=== PATIENT | female | born 1935 | race Caucasian/White ===

== ENCOUNTER 2016-09-01 08:12 | Inpatient (IN) | payer MEDICARE, OTHER ==
--- NOTE | ~2016-09-01 | CN ---
Consultation Report [facility] [address] [place]. [address] NAME: TRAVIS LIANG : 33 STATUS : ADM IN [facility]#: [id number] AGE: 81 ADM/REG DATE : 09/01/16 MR#: [id number] REPORT SERV DATE: 09/03/16 DICTATED BY: MARY YEPEZ DATE: 09/03/16 REPORT STATUS : Draft TRANSCRIBED BY: MODL DATE: 09/03/16 CONSULTATION DATE OF CONSULTATION: 09/03/2016 HISTORY OF PRESENT ILLNESS: This is an 81-year-old white female, who was admitted with hypoxic respiratory failure. Also, had some nausea and vomiting, which has resolved. Also, some left lower quadrant discomfort. The CT showed possible sigmoid mass and also showed gallstone. Surgery has been consulted and requested GI consultation. Has past history of respiratory failure; recurrent pneumonia; COPD; past history of removed, but still drains from the site. Also, required a PEG in 2011 that has been removed as well. Has had a benign abdominal tumor removed. Has had hysterectomy and partial thyroidectomy. Has obstructive sleep apnea and is diabetic. History of coronary artery disease, status post stent, on Plavix, the last dose was on Tuesday. She has continued to have some bowel movements, had three bowel movements yesterday. Also, history of hypertension. LFTs have been unremarkable. She has had low-grade temp. She is on antibiotics for presumed UTI. SOCIAL HISTORY: Negative. FAMILY HISTORY: Negative. LABORATORY DATA: Has chronic anemia, hemoglobin 7.3; white count of 13,000; platelet count 232,000. PHYSICAL EXAMINATION: GENERAL: Frail-appearing white female, lethargic. HEENT: Anicteric. NECK: Scar from previous surgery. CHEST: Few scattered rhonchi. HEART: Regular rate and rhythm without murmur or gallop. ABDOMEN: Soft. Some mild distention. Some tenderness in the left lower quadrant. Bowel sounds are present. EXTREMITIES: Grossly intact. NEUROLOGIC: Again, somewhat lethargic. ASSESSMENT: 1. CT with sigmoid mass, rule out CA. 2. End-stage renal disease, on hemodialysis. 3. Sepsis with probable urinary tract infection, on antibiotics. White count 13. 4. Past history of respiratory failure, status post trach, status post PEG, which was removed. Also, hypoxic respiratory failure on admission with history of chronic obstructive pulmonary disease and history of recurrent . 5. Coronary artery disease, status post stent. Has been on Plavix since Tuesday. Consultation Report [facility] [id number] [place]. [address] NAME: TRAVIS LIANG : 34 STATUS : ADM IN PAT#: [id number] AGE: 81 ADM/REG DATE : 09/01/16 MR#: [id number] REPORT SERV DATE: 09/03/16 DICTATED BY: MARY YEPEZ DATE: 09/03/16 REPORT STATUS : Draft TRANSCRIBED BY: OZZIE DATE: 09/03/16 6. Hypertension. 7. Diabetes mellitus. 8. Chronic anemia with hemoglobin of 7.3. SUGGESTIONS: A request has been made for sigmoidoscopy, we will schedule that with Dr. Bone on this weekend. Risks and benefits explained to the patient and daughter who are in agreement with the above. Thank you very much for consultation. ALEX/OZZIE Mary Yepez M.D. / [id number] CC: Christopher Ochoa M.D. Armando Saunders M.D.
--- NOTE | ~2016-09-01 | CN ---
Consultation Report [facility] [address] [place]. [address] NAME: TRAVIS LIANG : 34 STATUS : DIS IN PAT#: [id number] AGE: 81 ADM/REG DATE : 09/01/16 MR#: [id number] REPORT SERV DATE: 09/05/16 DICTATED BY: OZ MCCOY DATE: 09/05/16 REPORT STATUS : Draft TRANSCRIBED BY: MODL DATE: 09/05/16 INFECTIOUS DISEASE CONSULT DATE OF CONSULTATION: REASON FOR REFERRAL: Evaluation and treatment of worsening sepsis despite antibiotics. HISTORY OF PRESENT ILLNESS: The patient is an 81-year-old female. She has history of hypertension, diabetes mellitus, obstructive sleep apnea, coronary artery disease, gout, end stage renal disease, for which she is on hemodialysis. She has had worsening health over recent years. She has had multiple grafts failure. She had a severe pneumonia in 2012 resulting in prolonged vent dependence, tracheostomy. She has had difficulty with the stoma remaining ever since the trach was reversed. She has been very debilitated since then. She comes in on the with shortness of breath, abdominal distention, nausea, vomiting, and abdominal pain. She had after a couple of days fever, elevated white blood cell count of 16,000, a source for that was sought for. A chest x-ray looked more like congestive heart failure. Her urine did show E. coli, but she does not make much urine, it is more of a sludge. She, on the CT scan of her abdomen, was actually found to have a sigmoid mass highly suspicious of a malignancy and with signs of partial obstruction in the colon. She was started on vancomycin and Zosyn. Cultures of her sputum grew an MRSA, but it was very sparse, hardly any organism was seen on the Gram stain. Her blood showed no growth. Despite those antibiotics, she has continued to worsen, appear more and more ill. She has had recurrent fevers every day. Her white blood cell count has continued to climb and today it is 60,000 with 66 segs, 23% bands. The patient is currently unresponsive and unable to answer questions. PAST MEDICAL HISTORY: Otherwise unremarkable. Extensive records for her complicated ICU stay were reviewed for approximately 30 minutes in addition to the usual consult time. MEDICATIONS: She is on vancomycin and Zosyn. ALLERGIES: NO KNOWN ANTIMICROBIAL ALLERGIES. SOCIAL HISTORY: She is , has been cared for at home recently, but very debilitated. Nonsmoker. No history of alcohol or substance abuse. FAMILY HISTORY: Noncontributory. PHYSICAL EXAMINATION: GENERAL: A very ill, almost moribund-appearing elderly female, unresponsive. VITAL SIGNS: Her present temperature is 100.2 axillary, pulse 93, respirations 59, blood pressure 91/50. Her weight is 69 kg. HEENT: Sclerae are clear. Unable to really visualize her mouth. Her neck stoma shows no signs of purulence or infection. Consultation Report [facility] [address] [place]. [address] NAME: TRAVIS LIANG : 33 STATUS : DIS IN PAT#: [id number] AGE: 81 ADM/REG DATE : 09/01/16 MR#: [id number] REPORT SERV DATE: 09/05/16 DICTATED BY: OZ MCCOY DATE: 09/05/16 REPORT STATUS : Draft TRANSCRIBED BY: OZZIE DATE: 09/05/16 LUNGS: There are shallow rapid respirations with rales in the bases. HEART: Regular rate and rhythm. ABDOMEN: Distended, quiet. No response to palpation. EXTREMITIES: Without clubbing or cyanosis. No swollen, red, or hot joints. There is mild edema. There are no signs of cellulitis. IV site shows no signs of inflammation. LABORATORY DATA: White count 16.1 when she came in, 60.8 today. As previously mentioned, hematocrit 25.8 and platelets 275. Her BUN and creatinine are 58 and 6.49. Her procalcitonin when she came in was 1.29, it is 3.29 when checked yesterday. Her liver function tests at admission showed a slightly high alkaline phosphatase of 118, otherwise within normal limits. Her lactate is 12.1. IMPRESSION: I suspect that the source of her sepsis-like picture is intraabdominal. The chest x-ray really sounds more like congestive heart failure, fluid overload, doubt urine as a source. Abdomen is distended with a mass that has likely led to bowel or holes in the bowel. I would be suspicious of just usual gastrointestinal geovanni and not anything unusual since she has been out of the hospital for some time. RECOMMENDATIONS: 1. I think vancomycin and Zosyn are reasonable antibiotic coverage at this time. 2. Await Surgery's evaluation to see whether there is something that is potentially fixable in light of all of her other medical problems. Finally, I will follow the patient with you. I appreciate very much your consulting on this patient. MARY LOU Oz Mccoy M.D. / [id number] CC: Armando Sandoval M.D.
--- NOTE | ~2016-09-01 | CN ---
Consultation Report [address] [place]. [address] NAME: TRAVIS LIANG : 34 STATUS : ADM IN PAT#: [id number] AGE: 81 ADM/REG DATE : 09/01/16 MR#: [id number] REPORT SERV DATE: 09/02/16 DICTATED BY: FAVIOANURADHABENJAMIN MOYA DATE: 09/02/16 REPORT STATUS : Draft TRANSCRIBED BY: MODL DATE: 09/02/16 CONSULTATION DATE OF CONSULTATION: 09/02/2016 REASON FOR CONSULTATION: Consulted for possible sepsis, low O2 sats, and low blood pressure. IDENTIFYING DATA: PRIMARY CARE PHYSICIAN: Branden Upton M.D. UROLOGIST: Issac Olivier M.D. NATUROPATHIC DOCTOR: Rodrick Chatman M.D. LABELING ASSOCIATE: Roger Ruiz M.D. RESIDENTIAL COLLECTIONS: Rodríguez Clay M.D. HISTORY OF PRESENT ILLNESS: This is an 81-year-old female, admitted under Dr. Christophre Ochoa, with possible sigmoid mass and hypoxemia. She is debilitated, who dialyzes every Tuesday, Tuesday, and Tuesday by left PermCath at the [facility]. She has a history of end-stage renal disease, on dialysis, diabetes type 2, hypertension, chronic respiratory failure with trach, anemia, coronary artery disease, obstructive sleep apnea in the past, as well as CHF. The hospitalist group has been consulted to manage possible sepsis with low O2 sats and low blood pressure. The patient's history was obtained through interview with the patient's daughter at the bedside, coupled with review of [facility] and [facility], [facility] consultant notes, and old medical records. PAST MEDICAL HISTORY: 1. End-stage renal disease, on dialysis Tuesday, Tuesday, Tuesday at the [facility]. 2. Diabetes type 2. 3. Hypertension. 4. Coronary artery disease. 5. Gout. 6. Obstructive sleep apnea. 7. Rectal bleeding. 8. Chronic respiratory failure. 9. Tracheostomy. 10.Cerebrovascular disease. 11.Anemia. Consultation Report [address] [place]. [address] NAME: TRAVIS LIANG : 34 STATUS : ADM IN PAT#: [id number] AGE: 81 ADM/REG DATE : 09/01/16 MR#: [id number] REPORT SERV DATE: 09/02/16 DICTATED BY: ANURADHA STAHL DATE: 09/02/16 REPORT STATUS : Draft TRANSCRIBED BY: OZZIE DATE: 09/02/16 12.Chronic debility. 13.Recurrent pneumonia. 14.CHF. HOME MEDICATIONS: 1. Tylenol 650 mg p.o. every eight hours p.r.n. pain. 2. Albuterol 3 mL inhalation every eight hours scheduled for shortness of breath or wheezing. 3. Aspirin, enteric coated, 81 mg tablet p.o. at bedtime. 4. Lipitor 10 mg p.o. at bedtime. 5. Tums E-X 750 mg two tabs p.o. three times a day with meals. 6. Coreg 3.125 mg p.o. twice a day. 7. Zyrtec 10 mg p.o. daily p.r.n. allergies. 8. Plavix 75 mg p.o. every morning. 9. Multivitamin with minerals one tablet p.o. every morning. 10.Zofran 4 mg p.o. every eight hours p.r.n. nausea and vomiting. 11.Betadine skin cleanser one application topically daily p.r.n. to infected foot for healing. 12.Prednisone 1 mg p.o. at bedtime, maintenance therapy. 13.Zoloft 100 mg p.o. every morning. 14.Simethicone 80 mg p.o. four times a day p.r.n. gas. 15.Ultram 50 mg p.o. twice a day p.r.n. pain. 16.Dialysis day Tuesday, Tuesday, Tuesday via [facility]. 17.Colace 100 to 300 mg p.o. twice a day p.r.n. constipation. 18.Pepcid 20 mg p.o. every morning. 19.Uloric 40 mg p.o. at bedtime. 20.Flonase nasal spray 50 mcg per inhalation one spray nasally daily p.r.n. to both nostrils for congestion. 21.Mucinex 1200 mg p.o. twice a day. 22.Lantus 25 units subcu at bedtime. 23.Synthroid 50 mcg p.o. every morning. 24.Midodrine 5 mg p.o. daily on Tuesday, Tuesday, Tuesday on dialysis days, she takes it at the clinic. ALLERGIES: NO KNOWN ALLERGIES. SOCIAL HISTORY: The patient is . The daughter states that her lives in [place], and she lives with her daughter in a single-level home. The patient is bedridden. Does get home health care. No tobacco, alcohol, or illicit drug use. FAMILY HISTORY: Positive for diabetes and hypertension. Mother had hypertension and an [place]. Daughter states that the patient is an only child. SURGICAL HISTORY: 1. Coronary artery disease with PCI in 2011. Consultation Report [facility] [address] [place]. [address] NAME: TRAVIS LIANG : 34 STATUS : ADM IN [facility]#: [id number] AGE: 81 ADM/REG DATE : 09/01/16 MR#: [id number] REPORT SERV DATE: 09/02/16 DICTATED BY: ANURADHA STAHL DATE: 09/02/16 REPORT STATUS : Draft TRANSCRIBED BY: OZZIE DATE: 09/02/16 2. Removal of benign abdominal tumor. 3. Total abdominal hysterectomy. 4. Cardiac stents. 5. Partial thyroidectomy. 6. PEG placement and removal. 7. Left upper extremity fistula that has failed. 8. Left thigh graft that has failed. 9. Left PermCath for [facility]. REVIEW OF SYSTEMS: Negative other than what is in HPI. The patient presently is very sleepy, arouses only briefly and tries to answer questions. Difficult to understand her. No shortness of breath noted. No nausea and vomiting. No abdominal pain. No chest pain. She did have a fever earlier of 102.4, which now is down to 100.2. No agitation. Daughter states she does have confusion at times, especially since she has been sick. PHYSICAL EXAMINATION: VITAL SIGNS: From today, blood pressure 92/39, respiratory rate 26, heart rate 92, temperature 100.3, O2 saturation 92% on 4 L nasal cannula. GENERAL: This is an 81-year-old female, resting in bed, no acute distress presently. NEURO: Her head is atraumatic, normocephalic. She will arouse, is unable to determine her orientation. NECK: Supple. Trachea is midline. She does have a tracheostomy in place. Neck veins are flat. No obvious thyromegaly or lymphadenopathy. EENT: Her sclera is nonicteric. Pupils are equal and reactive to light. Nares patent. Mucous membranes moist. Tongue is midline without deviation. Presently, the patient, unable to evaluate phonation. CHEST: No pain with palpation. She does have a left dressing clean, dry, and intact, where she has a PermCath for dialysis. LUNGS: Her lungs have crackles at the right chest, diminished in the bases. Normal respiratory effort at present. Unable to evaluate conversation. CARDIOVASCULAR: S1, S2. She is on telemetry, displays a sinus rhythm with a rate of 97. No obvious murmurs, rubs, or gallops. ABDOMEN: Obese, soft, nontender. Bowel sounds active. No palpable organomegaly. Last bowel movement documented on 09/01/2016. EXTREMITIES: No edema. Normal distal pulses. No calf tenderness. SKIN: Warm and dry. No unusual rashes or lesions. Normal color and turgor for age. PSYCH: The patient awakens briefly. Does not follow commands presently. Wants to drift off back to sleep. LABORATORY DATA: Sodium 142, potassium 3.7, chloride 106, bicarb 22.1, BUN 28, creatinine 3.77, GFR 12, glucose 137, calcium 8.0, magnesium 1.5, phosphorus 1.7. White blood cells 13.1, hemoglobin 7.3, hematocrit 23.1, platelets 232. BNP is 3205.5. The patient had an x- ray that is pending this morning on 09/01/2016. EKG obtained on 09/01/2016 showed a normal Consultation Report [address] [address] NAME: TRAVIS LIANG : 34 STATUS : ADM IN [facility]#: [id number] AGE: 81 ADM/REG DATE : 09/01/16 MR#: [id number] REPORT SERV DATE: 09/02/16 DICTATED BY: ANURAHDA STAHL DATE: 09/02/16 REPORT STATUS : Draft TRANSCRIBED BY: MODL DATE: 09/02/16 sinus rhythm with a sinus arrhythmia, ST and T-wave abnormality. ABGs obtained this morning displayed a pH of 7.4, pCO2 of 30, pO2 of 64, base excess of - 1.0, bicarb of 22.1, O2 saturation of 89% which was on 2 L nasal cannula. She has been increased to 4 L nasal cannula. ASSESSMENT AND PLAN: 1. Hypotension. The patient's blood pressure has been in the 90s. Normally, she is in the 120s to 130s. Present blood pressure is 92/39. We will initiate albumin 25 g IV and repeat it x1. We will obtain blood cultures x2. Obtain a procalcitonin, a lactate, and a cortisol level this morning. She has a CMP, magnesium, phosphorus, CBC already on the chart. 2. Hypoxemia. Previously, the patient on O2 at 2 L. She does have a history of obstructive sleep apnea noted in the past. With her ABG results, her O2 was increased to 4 L nasal cannula. She has continuous O2 saturation monitoring. Portable chest x- ray has been done, results pending. We will place her on DuoNeb q.6. Keep saturations of 92% or greater. 3. Fever. Temperature was up to 102.4. Presently, temperature is down to 100.2. She is on Zosyn and vancomycin. We will also obtain a random cortisol level this morning too for her fever and hypotension. 4. Diabetes type 2. Aware. Her daughter monitors her blood sugars at home usually every other day. She does not feel like she needs education regarding diet or monitoring. She said on the average the blood sugars at home run 90 to 120 fasting. The patient's present blood sugars were 137, 163, 111, and 107. She is on a sliding scale with h.s. Levemir, which is continued and we will check a hemoglobin A1c this morning. 5. Labs this morning. CMP, magnesium, phosphorus, CBC, procalcitonin, lactate, blood cultures x2, ABG, cortisol level, hemoglobin A1c, and a portable chest x-ray. The hospitalist group would like to thank you for this consultation. Let us know if we can be of further assistance; a.m. team to follow an evaluation of lab work and blood cultures for further assistance of care. JACEY Anuradha Stahl NP / [id number] CC: Armando Sandoval M.D.
--- NOTE | ~2016-09-01 | DS ---
Discharge Summary [facility] [address] [place]. [address] NAME: TRAVIS LIANG : 34 STATUS : DIS IN PAT#: [id number] AGE: 81 ADM/REG DATE : 09/01/16 MR#: [id number] REPORT SERV DATE: 09/17/16 DICTATED BY: DARYL WHEELER DATE: 09/16/16 REPORT STATUS : Draft TRANSCRIBED BY: MODL DATE: 09/16/16 Data Collection from hospitalization DISCHARGE DIAGNOSES: 1. Sigmoid mass. 2. Low colon partial obstruction secondary to sigmoid mass. 3. Tachypnea secondary to abdominal distention and metabolic acidosis. 4. Positive anion gap metabolic acidosis. 5. Altered mental status. 6. End-stage renal disease. 7. Hypertension. 8. Type 2 diabetes mellitus. 9. Obstructive sleep apnea. 10.Coronary artery disease. 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 12.Congestive heart failure. 13.History of tracheostomy. 14.Chronic debilitation. CONSULTATIONS: 1. Anuradha Ortiz NP. 2. Ramone Gandhi M.D. 3. Jeevan Mccoy M.D. 4. Anselmo Saucedo M.D. 5. Ramone Camarillo MD. PROCEDURES PERFORMED: CT scan of the abdomen and pelvis without contrast on 09/01/2016. DISPOSITION: [facility]. HOSPITAL COURSE: The patient was an 81-year-old female who dialyzed on Mondays, Wednesdays, and Fridays via a left IJ PermCath. She apparently was having difficulty breathing the night prior to admission and her daughter suctioned her through her stoma, which should never close following trach removal. She had a history of prolonged hospitalization in 2012 with ventilator support. With regard to her breathing, it had not improved on the morning of admission, and she was brought to the emergency room. Her ABG revealed pO2 of 56 on arrival. She also reported some nausea with intermittent vomiting as well as some left lower quadrant pain. A CT scan of the abdomen and pelvis without contrast was performed and this revealed what appeared to be a sigmoid colon mass. Her daughter was advised of the CT scan findings and that we should have a Surgery evaluation. She was also advised that the patient may not be considered a candidate for surgery due to multiple medical problems. Her daughter had been providing very good support for years and indicated she would want a second opinion if the initial surgeon refused to operate. She was admitted to the hospital at this time for further evaluation and treatment. Upon admission, she was started on hemodialysis ultrafiltration. She was seen by Dr. Anselmo Saucedo. The daughter said that over the past several weeks the patient has had a change in bowel habits and she had noticed that her mother had some abdominal Discharge Summary [facility] [id number] [place]. [address] NAME: TRAVIS LIANG : 34 STATUS : DIS IN PAT#: [id number] AGE: 81 ADM/REG DATE : 09/01/16 MR#: [id number] REPORT SERV DATE: 09/17/16 DICTATED BY: DARYL WHEELER DATE: 09/16/16 REPORT STATUS : Draft TRANSCRIBED BY: OZZIE DATE: 09/16/16 distention. She had complained of some pain along her left side as well as in the left lower quadrant. CT scan of the abdomen and pelvis had shown a regular thickened appearance of the sigmoid that was worrisome for neoplastic lesion, partially obstructing the colon at this level. It was not high grade at this time. There was no perforation. There were extensive atherosclerotic changes. The patient's daughter stated that her mother had a colonoscopy approximately 25 to 30 years prior to this admission; however, had refused repeat colonoscopy since that time despite some history of rectal bleeding. At one colonoscopy, they removed some polyps. White blood cell count was 16. Currently, she was not obstructed. She was having bowel movements. It was discussed with the family the options of obtaining a colonoscopy, both for further evaluation of the colon pathology and possibly placing a stent and also the role of surgery for colon decompression. Currently, she had been started on vancomycin and Zosyn. Blood cultures were obtained. Further recommendations would be made once more data became available. The following day, she was seen by Anuradha Ortiz regarding possible sepsis, low O2 saturations, and low blood pressure. Blood cultures were obtained. Procalcitonin and lactate and cortisol levels were going to be checked. She was presently on O2 at 2 liters. She had a history of obstructive sleep apnea. Her temperature had been up to 102.4 and was presently 100.2. She was on Zosyn and vancomycin. We were going to obtain random cortisol level due to her fever and hypotension. She was on sliding scale insulin with Levemir. Hemoglobin A1c was going to be checked. She was tachypneic and hypotensive during the night. She had fever. On 09/03/2016, her T-max was 100. She did have a bowel movement. Urine culture revealed many bacteria. Her temperature was 99. Functional status remained poor. Troponin was going to be rechecked. Echocardiogram was performed. She was seen by Dr. Ramone Gandhi. She had a history of having a benign abdominal tumor removed. She had required a PEG in 2011 that had been removed. She had continued to have some bowel movements. She had three bowel movements the day previously. A request was made for sigmoidoscopy, this was going to be scheduled. The risks and benefits were explained to the patient and her daughter, and they were in agreement to proceed. No dialysis therapy was performed. On 09/04/2016, she was not responsive verbally. She had been found to have an E. coli urinary tract infection. We discussed with the patient's daughter the patient's decreased mental status and that it was probably unsafe to continue with oral prep. There was concern for protecting the airway. Antibiotics were continued. She remained poorly responsive and tachypneic. On 09/05/2016, her T-max was 99.6. She remained tachypneic. An NG tube was placed with 500 mL output. Her prognosis was very poor. Her condition was felt to be worsening. Her sensorium had decreased. White blood cell count had increased further to 60.8. The patient was seen by Dr. Jeevan Mccoy for evaluation and treatment of worsening sepsis despite antibiotics. Despite her antibiotics, she had continued to worsen and she appeared more-more ill. She had recurrent fevers every day. White blood cell count continued to increase. It was now 60,000 with 66 segs and 23% bands. At the time of admission, her procalcitonin level was 1.29 and it was now 3.29. Liver function tests at admission showed slightly high alkaline phosphatase of 118, otherwise, within normal limits. Lactate was 12.1. It was suspected that the source of her sepsis-like picture was intraabdominal. Chest x-ray appeared to be congestive heart failure and fluid overload. We were doubtful of urine as a source. Her abdomen was distended with a mass that had likely led to a bowel or holes in the bowel. He felt that vancomycin and Zosyn were reasonable antibiotic coverage at this time. Flexible sigmoidoscopy had been canceled Discharge Summary [facility] [id number] [place] [address] NAME: TRAVIS LIANG : 34 STATUS : DIS IN PAT#: [id number] AGE: 81 ADM/REG DATE : 09/01/16 MR#: [id number] REPORT SERV DATE: 09/17/16 DICTATED BY: DARYL WHEELER DATE: 09/16/16 REPORT STATUS : Draft TRANSCRIBED BY: OZZIE DATE: 09/16/16 secondary to worsening respiratory status and altered mental status. She had a soft brown bowel movement. She was seen by Dr. Ramone Camarillo. He had been asked to evaluate the patient regarding potential intubation secondary to metabolic acidosis and poor mental status. She was awaiting a second opinion with regard to surgical intervention from another surgeon when she then developed hypotension/bradycardia and went into PEA arrest. Code Blue was called. The patient was started on a bicarb drip. Levophed drip was going to be placed. The patient's condition continued to decline. The patient was found to have no pulse or respirations. She was pronounced at 3:02 p.m. and released to the above-mentioned home. Information collected by: Melissa Corcoran I submit the above information as my discharge summary. TG/OZZIE Daryl Wheeler M.D. / [id number] CC: Armando Sandoval M.D. William Cockerham, M.D. David Collins, M.D. Mark Anderson, M.D.
--- NOTE | ~2016-09-01 | HP ---
History And Physical [facility] [id number] [facility] [place]. [address] NAME: TRAVIS LIANG : 34 STATUS : ADM IN [facility]#: [id number] AGE: 81 ADM/REG DATE : 09/01/16 MR#: [id number] REPORT SERV DATE: 09/01/16 DICTATED BY: ZARINA OCHOA DATE: 09/01/16 REPORT STATUS : Draft TRANSCRIBED BY: MODL DATE: 09/01/16 DATE OF ADMISSION: 09/01/2016 INDICATION FOR HOSPITALIZATION: Possible sigmoid mass, hypoxemia. HISTORY OF PRESENT ILLNESS: Ms. Liang is a debilitated 81-year-old female who dialyzes Tuesday, Tuesday, Tuesday by left IJ PermCath at the [facility]. She apparently was having difficulty breathing the night prior to admission and her daughter suctioned her through her stoma which should never close following trach removal. She has a history of a prolonged hospitalization in 2012 with ventilator support. In regard to her breathing, it had not improved in the morning of admission and she was brought to the emergency room. Her ABG revealed a pO2 of 56 on arrival. The patient also reported some nausea with intermittent vomiting as well as some left lower quadrant pain. Due to physical exam, a CT scan was ordered and revealed what appeared to be a sigmoid colon mass. The patient's daughter was advised of the CT scan findings and that we would have surgery evaluate. She was also and advised that the patient may not be considered a candidate for surgery due to multiple medical problems. This daughter has been providing very good support for years and indicated she would want a second opinion as the initial surgeon refused to operate. PAST MEDICAL HISTORY: 1. End-stage renal disease, dialyzing Tuesday, Tuesday, and Tuesday at [facility] by left IJ PermCath. 2. History of recurrent pneumonia. 3. Right heel ulcer secondary to steal. 4. Partial thyroidectomy. 5. Total abdominal hysterectomy. 6. Remote rectal bleeding. 7. Tophaceous gout. 8. Hypertension. 9. Coronary artery disease with PCI in 2011. 10.Obstructive sleep apnea. 11.Type 2 diabetes mellitus. 12.Congestive heart failure. 13.History of chronic debilitation. 14.History of removal of benign abdominal tumor. 15.Tracheostomy. 16.PEG tube placement and removal. 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 ALLERGIES: NONE KNOWN. HOME MEDICATIONS: Acetaminophen, albuterol nebulizer, enteric-coated aspirin, calcium carbonate, Lipitor, Coreg, Zyrtec, Plavix, Colace, Pepcid, Uloric, Flonase nasal spray, Mucinex, Lantus insulin, levothyroxine, midodrine, multivitamin, Zofran, Betadine skin History And Physical [address] [address] NAME: TRAVIS LIANG : 34 STATUS : ADM IN PAT#: [id number] AGE: 81 ADM/REG DATE : 09/01/16 MR#: [id number] REPORT SERV DATE: 09/01/16 DICTATED BY: ZARINA OCHAO DATE: 09/01/16 REPORT STATUS : Draft TRANSCRIBED BY: OZZIE DATE: 09/01/16 cleaner laboratory equipment, prednisone, Zoloft, Gas-X, and tramadol. REVIEW OF SYSTEMS: HEENT: Negative except for intermittent cough and sinus drainage. PULMONARY: No shortness of breath, cough. No hemoptysis. CARDIAC: No chest pain. Has noted lower extremity edema. GASTROINTESTINAL: Left-sided abdominal pain, nausea, vomiting, decreased appetite. GENITOURINARY: No gross hematuria. MUSCULOSKELETAL: Chronic debilitation with generalized weakness. History of gouty arthritis. NEUROLOGIC: Generalized weakness. No seizure history. DERMIS: No rash. No itching. Remainder of 12-point review of systems is negative. PHYSICAL EXAMINATION: GENERAL: Chronically debilitated female, answers partially to questions. VITAL SIGNS: Blood pressure 108/48, temperature 98.2, pulse 96, and respiratory rate 12. HEENT: Eyes, no scleral icterus. Pupils are equal and reactive to light. Extraocular movement intact. Nares patent. No discharge. Throat with ostomy noted. No bruits. No masses. CHEST/LUNGS: Bilateral crackles anteriorly and posteriorly with some rhonchi. CARDIAC: Regular rate and rhythm, 1/6 systolic ejection murmur. No gallop. No rub. ABDOMEN: some left lower quadrant tenderness. No guarding or rebound. Unable to appreciate hepatosplenomegaly. No bruits. BREASTS: Not performed. PELVIC: Not performed. RECTAL: Not performed. EXTREMITIES: Trace edema in the lower extremities. No calf tenderness. NEUROLOGIC: Cranial nerves appear intact. No lateralizing weakness. MUSCULOSKELETAL: No deformity. IMPRESSION: 1. Hypoxic respiratory failure with mild volume overload. 2. Congestive heart failure. 3. Probable sigmoid colonic mass. 4. End-stage renal disease, on chronic hemodialysis. 5. Chronic debilitation. 6. Type 2 diabetes mellitus. 7. Obstructive sleep apnea. 8. Coronary artery disease with remote PCI. 9. Hypertension. 10.Tophaceous gout. PLAN: 1. Hemodialysis ultrafiltration. 2. Surgery consult, currently feels that the patient is a poor candidate for general anesthesia, and this was expressed to the patient's daughter. History And Physical [address] [place]. [address] NAME: TRAVIS LIANG : 34 STATUS : ADM IN [facility]#: [id number] AGE: 81 ADM/REG DATE : 09/01/16 MR#: [id number] REPORT SERV DATE: 09/01/16 DICTATED BY: ZARINA OCHOA DATE: 09/01/16 REPORT STATUS : Draft TRANSCRIBED BY: OZZIE DATE: 09/01/16 CG/OZZIE Zarina Ochoa M.D. / [id number] CC: Armando Sandoval M.D.
--- NOTE | ~2016-09-01 | CN ---
Consultation Report [facility] [address] [place]. [address] NAME: TRAVIS LIANG : 34 STATUS : DIS IN PAT#: [id number] AGE: 81 ADM/REG DATE : 09/01/16 MR#: [id number] REPORT SERV DATE: 09/05/16 DICTATED BY: ANSELMO SAUCEDO DATE: 09/05/16 REPORT STATUS : Draft TRANSCRIBED BY: MODL DATE: 09/05/16 SURGICAL CONSULTATION DATE OF CONSULTATION: 09/01/2016 REASON FOR CONSULTATION: Consultation is requested by Dr. Ochoa regarding possible sigmoid mass. HISTORY OF PRESENT ILLNESS: Ms. Liang is an 81-year-old female with end-stage renal disease. She dialyzes via hemodialysis from left IJV PermCath on Tuesday, Tuesday, and Tuesday and also has multiple other medical problems including history and some rectal bleeding, who presented to [facility] Emergency Room secondary to some difficulty breathing on the night prior to admission. An ABG at that time revealed a pO2 of 56. Most of the history is obtained from the patient's daughter who has been caring for her and supporting her very well for several years especially after a very prolonged hospitalization in 2012. The patient does try to partially answer questions; however, she is very difficult to understand. The daughter states that over the past several weeks, the patient has had a change in bowel habits, and she has also noticed that her mother has had some abdominal distention. The patient has complained of some pain along her left side as well as on left lower quadrant. Secondary to these complaints, a CT scan of the abdomen and pelvis was obtained. This was read by the radiologist as an irregular thickened appearance of the sigmoid that is worrisome for neoplastic lesion partially obstructing the colon at this level, it is not high grade at this time. There was no perforation. There were extensive atherosclerotic changes. Cardiomegaly with heavy coronary artery disease and small amount of bibasilar atelectasis. Secondary to this finding of the irregularly thickened appearance of the sigmoid colon, surgery was consulted for possible concern for sigmoid neoplasm. The patient's daughter states that she had a colonoscopy approximately 25-30 years ago; however, had refuses repeat colonoscopy since that time despite some history of rectal bleeding. At her one colonoscopy, they removed some polyps. No further history is available about this. There was no family history of colon cancer. PAST MEDICAL HISTORY AND PAST SURGICAL HISTORY: 1. End-stage renal disease with dialysis on Tuesday, Tuesday, and Tuesday. 2. History of prolonged hospitalization in 2012, at which time, she was intubated for a prolonged amount of time. She had a tracheostomy. She currently still has a stoma. She did have a code blue arrest during that time. 3. History of recurrent pneumonia. 4. 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 5. Partial thyroidectomy. 6. Total abdominal hysterectomy. 7. History of rectal bleeding. 8. History of gout. 9. Hypertension. 10.Coronary artery disease with PCI in 2011. Consultation Report [place] [id number]. [address] NAME: TRAVIS LIANG : 33 STATUS : DIS IN [facility]#: [id number] AGE: 81 ADM/REG DATE : 09/01/16 MR#: [id number] REPORT SERV DATE: 09/05/16 DICTATED BY: ANSELMO SAUCEDO DATE: 09/05/16 REPORT STATUS : Draft TRANSCRIBED BY: OZZIE DATE: 09/05/16 11.Obstructive sleep apnea. 12.Type 2 diabetes. 13.Congestive heart failure. 14.Chronic debilitation. 15.History of removal of a large tumor in her abdomen that was benign for which she underwent an exploratory laparotomy in 2003. 16.PEG tube placement and removal. 17.Multiple AV graft failures including the left upper extremity and the left thigh. 18.Stroke in the past. She has residual deficits of weakness in her left arm. FAMILY HISTORY: Negative for colon cancer. Multiple family members have diabetes and hypertension. SOCIAL HISTORY: The patient lives with her daughter who is her primary gift shop manager. No tobacco, alcohol, or illicits. Her lives in [place]. ALLERGIES: NO KNOWN DRUG ALLERGIES. MEDICATIONS: Reviewed per the computer record. REVIEW OF SYSTEMS: Positive for the symptoms listed in the history of present illness. PHYSICAL EXAMINATION: VITAL SIGNS: Blood pressure is 102/55, heart rate is 108, and temperature 100.1. GENERAL: Mrs. Liang is an elderly woman who is lying in the bed. She is in no acute distress. She is chronically debilitated. She does make eye contact and tries to partially answer questions. However, she does speak quite slowly. This was likely secondary to her previous CVA. She is also very hard to understand. HEENT: She has no deformities. Pupils are equal, round, and reactive to light. Oropharynx is clear. Mucous membranes are moist. NECK: There is a stoma from her previous tracheostomy that is patent. LUNGS: She has coarse breath sounds bilaterally with decreased breath sounds in the bases. HEART: Regular rate and rhythm. ABDOMEN: Soft. It is obese. She is tender to palpation along the left side. In the left lower quadrant, there was no peritonitis. Initially, she states that her pain is in her left chest and in her left upper quadrant; however, on examination, it does seem like it is more sore in the left lower quadrant. EXTREMITIES: There is no edema. Her motor in her left arm is significantly decreased. She is essentially bedbound at home. LABORATORY DATA: All available laboratory data were reviewed in full with a white blood cell count of 16, hematocrit is 24. BUN is 49, creatinine is 4.83, and glucose is 107. Calcium is 8. Consultation Report [address] [place]. [address] NAME: TRAVIS LIANG : 34 STATUS : DIS IN PAT#: [id number] AGE: 81 ADM/REG DATE : 09/01/16 MR#: [id number] REPORT SERV DATE: 09/05/16 DICTATED BY: ANSELMO SAUCEDO DATE: 09/05/16 REPORT STATUS : Draft TRANSCRIBED BY: OZZIE DATE: 09/05/16 CT scan was reviewed as mentioned above. ASSESSMENT AND PLAN: Ms. Liang is an 81-year-old woman with a very poor functional status and multiple medical comorbidities who now has a change in her bowel habits and abdominal distention. A CT scan that is concerning for a rectosigmoid neoplasm with partial obstruction. Currently, she is not obstructed. She is having bowel movements. It was discussed with the family options of obtaining a colonoscopy both for further evaluation of the colon pathology and possibly placing a stent and also the role of surgery for colon decompression. Currently, she has been begun on vancomycin and Zosyn. Blood cultures have been obtained. Further investigations are pending regarding her leukocytosis. Further recommendations will follow once more data becomes available. Thank you for this consultation. No antibiotics. Further investigations as to the source of her white count being undertaken including respiratory. DICTATED BY: MD ALEX Cook/OZZIE Anselmo Sauceod M.D. / [id number] CC: Armando Schmidt M.D.
[~2016-09-01 08:12] MED LIST: ACCUNE1 INH; ACCUNEB INH; ACETSUP650 PR; AGGRENOX PO; ALBUTEROL5 INH; ALLOPURINOL; AMPI500 PO; ASA5GR PEG; ASA5GR PO; ASAB PO; ATV.5 PO; CALMOSEPTINE O2.5 OZ TOP; CAT1 PO; CENTRUM PO; CIP5 PO; COLCRYS0.6 MG PO; COREG12 PO; COREG3 PO; COREG6 PO; DITRO5 PO; DOCUSOFT S100 MG PO; FERRETTS325 MG PO; FERROUS SULF325 M1 PO; FISH OIL300 MG PO; FLORASTOR250 MG PO; FLOVENT DISK50 MCG INH; FOLIC PO; GANIDIN NR100 MG/5 M PO; GARAOINT15 TOP; HALF81 PO; HEMOCYTE324 MG PO; HEPARIN INJ5000 U/ML SQ; INSPRA25 PO; IRON325 MG PO; IVVIBRA PO; K250 PO; KLOR-CON M2020 MEQ PO; L20 PO; LANTUS SC; LANTUSCART SC; LEVAQUIN5T PO; LEVOTHYROXIN50 MCG PO; LIDODERM T; LIPITOR10 PO; LIPITOR40 PO; MAXIMUM D3 PO; MONODOX100 MG PO; MUCINEX1200 MG PO; MUCINEX600 MG PO; MULTIPLE VIT PO; MULTIVIT/MIN PO; NOVOLOG SC; OMEGA-3; P1 PO; P5 PO; PEP20 PO; PERIDEX PO; PHOSLO PO; PLAVIX PEG; PLAVIX PO; PRIN20 PO; PROAM25; PROAMAT5 PO; PROCTOFOAM15 GM RE; PROTONIX PO; PROVENTSOL INH; REG PEG; SILVASORB TOP; SPIRO25 PO; STARLIX120 PO; SYN.025B PO; SYN.05 PO; TUMS E-X750 M2 PO; Tums PO; ULORIC40 MG PO; ULTRAM50 PO; VANC125UDL PO; VANCO1P; VANCOCIN HCL125 MG PO; VIB100 PO; Z100 PEG; Z100 PO; ZOCOR40 PO; ZOFRAN ODT4 MG PO; ZOFRAN4 PO; ZOL100 PO; ZOL50 PO; [UNRECOGNIZED DRUG - OTHER] PO
[2016-09-01 08:34] LABS: BE (BASE EXCESS) -1.7 MEQ/L (0 +/- 2.5); CARBOXYHEMOGLOBIN 2.2 % (0-3); HCO3 (ACTUAL BICARBONATE) 22.2 MEQ/L (23-27); HEMOBLOGIN CONTENT 7.8 G/DL (12-16); INSTRUMENT SERIAL # 8087; O2 CONTENT 9.2 VOL% (18-24); PCO2 (CO2 TENSION) 34 MMHG (35-45); PO2 (O2 TENSION) 56 MMHG (79-93); SAMPLE Arterial; pH 7.44 (7.37-7.43)
[2016-09-01 08:47] LABS: BASOPHILS 0.2 %; BASOPHILS ABSOLUTE 0.04 10/3/uL (0.0-0.16); EOSINOPHILS 0.7 %; EOSINOPHILS ABSOLUTE 0.11 10/3/uL (0.0-0.53); ER CBC TAT 0 Hrs 00 Mins; HEMATOCRIT 24.6 % (36.0-48.0); HEMOGLOBIN 8.1 g/dL (12.0-16.0); IMMATURE GRANULOCYTES 1.4 %; IMMATURE GRANULOCYTES ABSOLUTE 0.22 10/3/uL (0.0-0.11); LYMPHOCYTES 9.3 %; LYMPHOCYTES ABSOLUTE 1.49 10/3/uL (0.67-4.30); MEAN CORPUS HGB CONC 32.9 g/dL (32.0-36.0); MEAN CORPUSCULAR HEMOGLOB 31.9 pg (26.0-34.0); MEAN CORPUSCULAR VOLUME 96.9 fL (80-100); MEAN PLATELET VOLUME 9.4 fL (9.2-13.0); MONOCYTES 12.3 %; MONOCYTES ABSOLUTE 1.97 10/3/uL (0.21-1.20); NEUTROPHILS 76.1 %; NEUTROPHILS ABSOLUTE 12.23 10/3/uL (2.02-8.40); RBC DISTRIBUTION WIDTH 15.8 % (12.0-16.0); RED CELL COUNT 2.54 10/6/uL (4.0-5.6); WHITE BLOOD CELLS 16.1 10/3/uL (4.5-10.5)
[2016-09-01 08:53] LABS: MANUAL DIFF NO %; PLATELET COUNT 227 10/3/uL (150-400)
[2016-09-01 09:04] LABS: A/G RATIO 0.6 (0.7-1.9); ALBUMIN 2.3 G/DL (3.5-5.0); CHLORIDE, SERUM 99 MMOL/L (96-112); CO2 (CARBON DIOXIDE) 23 MMOL/L (24-34); GLOBULIN 3.9 G/DL (2.5-4.1); SGOT(AST) 32 U/L (5-40); SGPT(ALT) 17 U/L (5-65); SODIUM, SERUM 136 MMOL/L (135-148); TOTAL BILIRUBIN 0.7 MG/DL (0-1.2); TOTAL PROTEIN 6.2 G/DL (6.0-8.5)
[2016-09-01 09:05] LABS: ALKALINE PHOSPHATASE 118 U/L (45-117); BUN (BLOOD UREA NITROGEN) 49 MG/DL (6-23); CREATININE 4.83 MG/DL (0.55-1.02); GFR AFRICAN AMERICAN 9 ML/MIN (>=60); GFR NON AFRICAN AMERICAN 8 ML/MIN (>=60); GLUCOSE, SERUM 107 MG/DL (60-99); POTASSIUM, SERUM 3.8 MMOL/L (3.5-5.3)
[2016-09-01] MEDS ORDERED: ALBUTEROL0.083 % INH (11:38)
[2016-09-01] MEDS ORDERED: DIALYSIS IV (11:38)
[2016-09-01] MEDS ORDERED: HALF81 PO (11:39)
[2016-09-01] MEDS ORDERED: LIPITOR10 PO (11:39)
[2016-09-01] MEDS ORDERED: TUMS E-X750 M2 PO (11:39)
[2016-09-01] MEDS ORDERED: ULORIC40 MG PO (11:40)
[2016-09-01] MEDS ORDERED: PLAVIX PO (11:40)
[2016-09-01] MEDS ORDERED: MUCINEX1200 MG PO (11:40)
[2016-09-01] MEDS ORDERED: COREG3 PO (11:40)
[2016-09-01] MEDS ORDERED: PEP20 PO (11:40)
[2016-09-01] MEDS ORDERED: LANTUSCART SC (11:41)
[2016-09-01] MEDS ORDERED: SYN.05 PO (11:41)
[2016-09-01] MEDS ORDERED: ZOFRAN4 PO (11:42)
[2016-09-01] MEDS ORDERED: PROAMAT5 PO (11:42)
[2016-09-01] MEDS ORDERED: MULTIVIT/MIN PO (11:42)
[2016-09-01] MEDS ORDERED: P1 PO (11:43)
[2016-09-01] MEDS ORDERED: ULTRAM50 PO (11:43)
[2016-09-01] MEDS ORDERED: ZOL100 PO (11:43)
[2016-09-01] MEDS ORDERED: DSS PO (11:44)
[2016-09-01] MEDS ORDERED: 8 HOUR650 MG PO (11:44)
[2016-09-01] MEDS ORDERED: FLONASE NAS (11:45)
[2016-09-01] MEDS ORDERED: GAS-X80 MG PO (11:45)
[2016-09-01] MEDS ORDERED: ZYRTEC ALLGY10 MG PO (11:45)
[2016-09-01] MEDS ORDERED: [UNRECOGNIZED DRUG - OTHER] TOP (11:46)
[2016-09-02 00:10] LABS: ALLENS TEST Pos; CARBOXYHEMOGLOBIN 2.5 % (0-3); DEVICE Nasal Cannula 4; HCO3 (ACTUAL BICARBONATE) 22.1 MEQ/L (23-27); HEMOBLOGIN CONTENT 7.1 G/DL (12-16); INSTRUMENT SERIAL # 8087; O2 CONTENT 8.8 VOL% (18-24); OPERATOR ID 17589; PCO2 (CO2 TENSION) 30 MMHG (35-45); PO2 (O2 TENSION) 64 MMHG (79-93); SAMPLE Arterial; pH 7.49 (7.37-7.43)
[2016-09-02 01:21] LABS: HEMATOCRIT 23.1 % (36.0-48.0); HEMOGLOBIN 7.3 g/dL (12.0-16.0); MANUAL DIFF YES %; MEAN CORPUS HGB CONC 31.6 g/dL (32.0-36.0); MEAN CORPUSCULAR HEMOGLOB 31.5 pg (26.0-34.0); MEAN CORPUSCULAR VOLUME 99.6 fL (80-100); MEAN PLATELET VOLUME 9.5 fL (9.2-13.0); NUCLEATED RED BLOOD CELLS 0.2 /100WBC (0-0); PLATELET COUNT 232 10/3/uL (150-400); RBC DISTRIBUTION WIDTH 15.7 % (12.0-16.0); RED CELL COUNT 2.32 10/6/uL (4.0-5.6); WHITE BLOOD CELLS 13.1 10/3/uL (4.5-10.5)
[2016-09-02 01:37] LABS: BAND NEUTROPHILS 4 %; EOSINOPHILS 1 %; EOSINOPHILS ABSOLUTE (CALC) 0.13 10/3/uL (0.0-0.53); LYMPHOCYTES 12 %; LYMPHOCYTES ABSOLUTE (CALC) 1.57 10/3/uL (0.67-4.30); MONOCYTES 5 %; MONOCYTES ABSOLUTE (CALC) 0.66 10/3/uL (0.21-1.20); NEUTROPHILS ABSOLUTE (CALC) 10.74 10/3/uL (2.02-8.40); PLATELET ESTIMATE ADQ (ADEQUATE); RBC MORPHOLOGY NORM (NORMAL); SEGMENTED NEUTROPHIL (0) 78 %; TOTAL NUCLEATED CELLS 100
[2016-09-02 01:47] LABS: ALBUMIN 2.6 G/DL (3.5-5.0); CHLORIDE, SERUM 106 MMOL/L (96-112); CO2 (CARBON DIOXIDE) 23 MMOL/L (24-34); POTASSIUM, SERUM 3.7 MMOL/L (3.5-5.3); SODIUM, SERUM 142 MMOL/L (135-148)
[2016-09-02 01:53] LABS: BUN (BLOOD UREA NITROGEN) 28 MG/DL (6-23); CREATININE 3.77 MG/DL (0.55-1.02); GFR AFRICAN AMERICAN 12 ML/MIN (>=60); GFR NON AFRICAN AMERICAN 11 ML/MIN (>=60); GLUCOSE, SERUM 137 MG/DL (60-99); PHOSPHORUS, SERUM 1.7 MG/DL (2.5-4.5)
[2016-09-02 06:03] LABS: A/G RATIO 0.8 (0.7-1.9); ALBUMIN 2.7 G/DL (3.5-5.0); ALKALINE PHOSPHATASE 113 U/L (45-117); BUN (BLOOD UREA NITROGEN) 34 MG/DL (6-23); CHLORIDE, SERUM 107 MMOL/L (96-112); CO2 (CARBON DIOXIDE) 25 MMOL/L (24-34); CREATININE 4.21 MG/DL (0.55-1.02); GFR AFRICAN AMERICAN 11 ML/MIN (>=60); GFR NON AFRICAN AMERICAN 9 ML/MIN (>=60); GLOBULIN 3.5 G/DL (2.5-4.1); GLUCOSE, SERUM 111 MG/DL (60-99); PHOSPHORUS, SERUM 2.9 MG/DL (2.5-4.5); POTASSIUM, SERUM 3.9 MMOL/L (3.5-5.3); SGOT(AST) 27 U/L (5-40); SGPT(ALT) 18 U/L (5-65); SODIUM, SERUM 142 MMOL/L (135-148); TOTAL BILIRUBIN 0.7 MG/DL (0-1.2); TOTAL PROTEIN 6.2 G/DL (6.0-8.5); TROPONIN I 3.15 NG/ML (<0.05)
[2016-09-02 06:26] LABS: PROCALCITONIN 1.29 ng/mL (<0.5)
[2016-09-02 14:47] LABS: CK-MB 3.6 NG/ML; CPK 36 U/L (0-200); TROPONIN I 2.43 NG/ML (<0.05)
[2016-09-02 17:13] LABS: ASCORBIC ACID (UR NOT ORDER) NEG (NEG); BILIRUBIN, URINE NEGATIVE (NEG); KETONE, URINE NEGATIVE (NEG); LEUKOCYTE ESTERASE(NOT OR SMALL (NEG)
[2016-09-02 17:16] LABS: WBC (NOT ORDERED) (RFLEX) > 182 (0-5)
[2016-09-02 20:04] LABS: CPK 31 U/L (0-200)
[2016-09-02 20:05] LABS: CK-MB 3.2 NG/ML; TROPONIN I 2.49 NG/ML (<0.05)
[2016-09-03 15:30] LABS: BASOPHILS 0.2 %; BASOPHILS ABSOLUTE 0.09 10/3/uL (0.0-0.16); EOSINOPHILS 0 %; EOSINOPHILS ABSOLUTE 0.02 10/3/uL (0.0-0.53); HEMATOCRIT 24.3 % (36.0-48.0); HEMOGLOBIN 7.6 g/dL (12.0-16.0); IMMATURE GRANULOCYTES 1.3 %; IMMATURE GRANULOCYTES ABSOLUTE 0.64 10/3/uL (0.0-0.11); LYMPHOCYTES 2.9 %; LYMPHOCYTES ABSOLUTE 1.47 10/3/uL (0.67-4.30); MEAN CORPUS HGB CONC 31.3 g/dL (32.0-36.0); MEAN CORPUSCULAR HEMOGLOB 31.4 pg (26.0-34.0); MEAN CORPUSCULAR VOLUME 100.4 fL (80-100); MEAN PLATELET VOLUME 9.8 fL (9.2-13.0); MONOCYTES 8.7 %; MONOCYTES ABSOLUTE 4.33 10/3/uL (0.21-1.20); NEUTROPHILS 86.9 %; NEUTROPHILS ABSOLUTE 43.36 10/3/uL (2.02-8.40); NUCLEATED RED BLOOD CELLS 0.1 /100WBC (0-0); PLATELET COUNT 301 10/3/uL (150-400); RBC DISTRIBUTION WIDTH 16.1 % (12.0-16.0); RED CELL COUNT 2.42 10/6/uL (4.0-5.6)
[2016-09-03 15:33] LABS: MANUAL DIFF NO %; WHITE BLOOD CELLS 49.9 10/3/uL (4.5-10.5)
[2016-09-03 15:39] LABS: ALBUMIN 2.8 G/DL (3.5-5.0); CALCIUM, SERUM 8.3 MG/DL (8.5-10.4); CHLORIDE, SERUM 104 MMOL/L (96-112); CO2 (CARBON DIOXIDE) 23 MMOL/L (24-34); SODIUM, SERUM 139 MMOL/L (135-148)
[2016-09-03 15:40] LABS: BUN (BLOOD UREA NITROGEN) 56 MG/DL (6-23); CREATININE 6.45 MG/DL (0.55-1.02); GFR AFRICAN AMERICAN 6 ML/MIN (>=60); GFR NON AFRICAN AMERICAN 6 ML/MIN (>=60); GLUCOSE, SERUM 139 MG/DL (60-99); PHOSPHORUS, SERUM 4.3 MG/DL (2.5-4.5); POTASSIUM, SERUM 4.7 MMOL/L (3.5-5.3)
[2016-09-03 15:48] LABS: ANISOCYTOSIS 1+ (5-10/OIF) (0-5/OIF); BAND NEUTROPHILS 11 %; LYMPHOCYTES 3 %; MACROCYTES 1+ (5-10/OIF) (0-5/OIF); MONOCYTES 3 %; NEUTROPHILS ABSOLUTE (CALC) 46.91 10/3/uL (2.02-8.40); PLATELET ESTIMATE ADQ (ADEQUATE); SEGMENTED NEUTROPHIL (0) 83 %; TEARDROP SHAPED RBCS OCC (0-2/OIF); TOTAL NUCLEATED CELLS 100
[2016-09-03 15:49] LABS: OVALOCYTES 1+ (3-10/OIF) (0-2/OIF)
[2016-09-04 06:27] LABS: BUN (BLOOD UREA NITROGEN) 32 MG/DL (6-23); CALCIUM, SERUM 8.7 MG/DL (8.5-10.4); CHLORIDE, SERUM 106 MMOL/L (96-112); CO2 (CARBON DIOXIDE) 22 MMOL/L (24-34); CREATININE 4.57 MG/DL (0.55-1.02); GFR AFRICAN AMERICAN 10 ML/MIN (>=60); GFR NON AFRICAN AMERICAN 8 ML/MIN (>=60); GLUCOSE, SERUM 165 MG/DL (60-99); PHOSPHORUS, SERUM 2.5 MG/DL (2.5-4.5); SODIUM, SERUM 142 MMOL/L (135-148)
[2016-09-04 06:50] LABS: HEMATOCRIT 24.7 % (36.0-48.0); HEMOGLOBIN 7.5 g/dL (12.0-16.0); MEAN CORPUS HGB CONC 30.4 g/dL (32.0-36.0); MEAN CORPUSCULAR HEMOGLOB 31.1 pg (26.0-34.0); MEAN CORPUSCULAR VOLUME 102.5 fL (80-100); NUCLEATED RED BLOOD CELLS 0.2 /100WBC (0-0); PLATELET COUNT 281 10/3/uL (150-400); RBC DISTRIBUTION WIDTH 16.4 % (12.0-16.0); RED CELL COUNT 2.41 10/6/uL (4.0-5.6)
[2016-09-04 07:00] LABS: MANUAL DIFF YES %; WHITE BLOOD CELLS 47.5 10/3/uL (4.5-10.5)
[2016-09-04 07:21] LABS: BAND NEUTROPHILS 22 %; BASOPHILS 1 %; BASOPHILS ABSOLUTE (CALC) 0.48 10/3/uL (0.0-0.16); EOSINOPHILS 1 %; EOSINOPHILS ABSOLUTE (CALC) 0.48 10/3/uL (0.0-0.53); LYMPHOCYTES 3 %; LYMPHOCYTES ABSOLUTE (CALC) 1.43 10/3/uL (0.67-4.30); MONOCYTES 4 %; NEUTROPHILS ABSOLUTE (CALC) 43.23 10/3/uL (2.02-8.40); SEGMENTED NEUTROPHIL (0) 69 %; TOTAL NUCLEATED CELLS 100
[2016-09-04 07:30] LABS: MACROCYTES 1+ (5-10/OIF) (0-5/OIF); PLATELET ESTIMATE ADQ (ADEQUATE); POLYCHROMASIA 1+ (2-5/OIF) (0-1/OIF)
[2016-09-04 07:31] LABS: TOXIC GRANULATION 1+
[2016-09-04 08:18] LABS: PROCALCITONIN 3.29 ng/mL (<0.5)
[2016-09-04 09:55] LABS: ALLENS TEST Pos; CARBOXYHEMOGLOBIN 1.3 % (0-3); DEVICE NC; HCO3 (ACTUAL BICARBONATE) 21.8 MEQ/L (23-27); HEMOBLOGIN CONTENT 7.9 G/DL (12-16); INSTRUMENT SERIAL # 8083; O2 CONTENT 10.2 VOL% (18-24); PCO2 (CO2 TENSION) 38 MMHG (35-45); PO2 (O2 TENSION) 79 MMHG (79-93); SAMPLE Arterial; pH 7.38 (7.37-7.43)
[2016-09-05 05:49] LABS: ALBUMIN 2.7 G/DL (3.5-5.0); CALCIUM, SERUM 9.2 MG/DL (8.5-10.4); CHLORIDE, SERUM 106 MMOL/L (96-112); SODIUM, SERUM 144 MMOL/L (135-148)
[2016-09-05 05:50] LABS: BUN (BLOOD UREA NITROGEN) 58 MG/DL (6-23); CO2 (CARBON DIOXIDE) 16 MMOL/L (24-34); CREATININE 6.49 MG/DL (0.55-1.02); GFR AFRICAN AMERICAN 6 ML/MIN (>=60); GFR NON AFRICAN AMERICAN 5 ML/MIN (>=60); POTASSIUM, SERUM 4.9 MMOL/L (3.5-5.3)
[2016-09-05 05:51] LABS: GLUCOSE, SERUM 122 MG/DL (60-99); PHOSPHORUS, SERUM 4.9 MG/DL (2.5-4.5)
[2016-09-05 06:06] LABS: HEMATOCRIT 25.6 % (36.0-48.0); HEMOGLOBIN 7.7 g/dL (12.0-16.0); MANUAL DIFF YES %; MEAN CORPUS HGB CONC 30.1 g/dL (32.0-36.0); MEAN CORPUSCULAR HEMOGLOB 31.2 pg (26.0-34.0); MEAN CORPUSCULAR VOLUME 103.6 fL (80-100); MEAN PLATELET VOLUME 9.9 fL (9.2-13.0); NUCLEATED RED BLOOD CELLS 0.4 /100WBC (0-0); PLATELET COUNT 275 10/3/uL (150-400); RBC DISTRIBUTION WIDTH 16.5 % (12.0-16.0); RED CELL COUNT 2.47 10/6/uL (4.0-5.6); WHITE BLOOD CELLS 60.8 10/3/uL (4.5-10.5)
[2016-09-05 06:41] LABS: BAND NEUTROPHILS 23 %; IMMATURE GRANS ABSOLUTE (CALC) 1.22 10/3/uL (0.0-0.11); LYMPHOCYTES 3 %; LYMPHOCYTES ABSOLUTE (CALC) 1.82 10/3/uL (0.67-4.30); METAMYELOCYTES 2 %; MONOCYTES 6 %; MONOCYTES ABSOLUTE (CALC) 3.65 10/3/uL (0.21-1.20); NEUTROPHILS ABSOLUTE (CALC) 54.11 10/3/uL (2.02-8.40); SEGMENTED NEUTROPHIL (0) 66 %; TOTAL NUCLEATED CELLS 100
[2016-09-05 06:42] LABS: HELMET CELLS OCC (0-2/OIF); HYPOCHROMIA 1+ (3-10/OIF) (0-2/OIF); MACROCYTES 1+ (5-10/OIF) (0-5/OIF); PLATELET ESTIMATE ADQ (ADEQUATE); POLYCHROMASIA 1+ (2-5/OIF) (0-1/OIF); TEARDROP SHAPED RBCS OCC (0-2/OIF); TOXIC GRANULATION 1+; VACUOLATED NEUTROPHILES OCC
[2016-09-05 06:43] LABS: ANISOCYTOSIS 1+ (5-10/OIF) (0-5/OIF); MICROCYTES 1+ (5-10/OIF) (0-5/OIF); POIKILOCYTOSIS 1+ (5-10/OIF) (0-5/OIF); SCHISTOCYTES OCC (0-2/OIF); TARGET CELLS OCC (1-2/OIF) (0-1/OIF)
[2016-09-05 12:13] LABS: BE (BASE EXCESS) -16.3 MEQ/L (0 +/- 2.5); CARBOXYHEMOGLOBIN 0.4 % (0-3); HCO3 (ACTUAL BICARBONATE) 9.9 MEQ/L (23-27); HEMOBLOGIN CONTENT 7.6 G/DL (12-16); INSTRUMENT SERIAL # 8083; O2 CONTENT 9.9 VOL% (18-24); OPERATOR ID 18801; PCO2 (CO2 TENSION) 25 MMHG (35-45); PO2 (O2 TENSION) 92 MMHG (79-93); SAMPLE Arterial; pH 7.22 (7.37-7.43)
[2016-09-05 12:14] LABS: ALLENS TEST Pos
== END 2016-09-05 18:30 | disposition expired | DRG 871 ==
LOC: ER 08:12 → 4SO 12:55 → IMCU 09-04 18:22
PROVIDERS: Emergency Medicine; Internal Medicine Nephrology; Nurse Practitioner; Nurse Practitioner Family
PROC: 5A1D60Z (ICD-10-PCS; principal; 2016-09-01)
DX: A41.9 Sepsis, unspecified organism (principal); G93.40 Encephalopathy, unspecified; J96.21 Acute and chronic respiratory failure with hypoxia; K56.60 Unspecified intestinal obstruction; E87.2 Acidosis; N18.6 End stage renal disease; C19 Malignant neoplasm of rectosigmoid junction; N39.0 Urinary tract infection, site not specified; I12.0 Hypertensive chronic kidney disease with stage 5 chronic kidney disease or end stage renal disease; B96.20 Unspecified Escherichia coli [E. coli] as the cause of diseases classified elsewhere; E11.22 Type 2 diabetes mellitus with diabetic chronic kidney disease; Z99.2 Dependence on renal dialysis; E78.5 Hyperlipidemia, unspecified; I25.10 Atherosclerotic heart disease of native coronary artery without angina pectoris; Z95.5 Presence of coronary angioplasty implant and graft
CPT/HCPCS: 31720; 36600; 71010; 74000; 74022; 74176; 80053; 80069; 80202; 81001; 82533; 82550; 82553; 82805; 82962; 83036; 83605; 83735; 83880; 84100; 84145; 84484; 85025; 87040; 87045; 87046; 87046-59; 87070; 87077; 87086; 87186; 87205; 87328; 87329; 87493; 87493-59; 87899; 87899-59; 89055; 92950; 93005; 94640; 99285; A9270-GY; C8929; G0257; J0282; J2405; J2543; J2997; J3370; P9047; Q9957